=== PATIENT | female | born 1980 | race Caucasian/White ===

== ENCOUNTER → 2020-10-06 | Outpatient (CLI) | payer OTHER ==
--- NOTE | 2020-10-06 15:31 | RAD ---
XR BILATERAL HIP (WITH OR WITHOUT PELVIS) LEFT 2 VIEWS History: Fall, left hip pain Comparison: None. Technique: AP pelvis and 2 coned-down views of the left hip. Findings: Osseous mineralization is normal. No fracture or dislocaton. No significant degenerative changes. Sof t tissues are unremarkable. Impression: 1. No acute osseous abnormality of the left hip. Electronically signed by: Akash Rosas MD (10/06/2020 3:29 PM) [id number]
--- NOTE | 2020-10-06 15:32 | RAD ---
Three-view right wrist dated 10/06/2020. No comparison available. CLINICAL INDICATION: Pain. FINDINGS: 3 views right wrist show normal bony alignment. No displaced fracture. No periostitis or bone destruc tion. No acute osseous or articular abnormality. IMPRESSION: No acute radiographic abnormality. Electronically signed by: Brian Farrar MD (10/06/2020 3:29 PM) [id number]
== END ==
LOC: PMG 15:05
PROVIDERS: ATTEND Nurse Practitioner Family
DX: M25.552 Pain in left hip (principal); M25.531 Pain in right wrist; Z91.81 History of falling
CPT/HCPCS: 73110; 73502